=== PATIENT | female | born 1975 | race Two or more races ===

== ENCOUNTER 2019-03-30 21:07 | Observation (INO) | payer BC ==
[2019-03-30 21:27] LABS: #Eosinphils 0.3 thou/uL (0.0-0.7); #Lymphocytes 2.7 thou/uL (1.20-3.40); #Monocytes 0.6 thou/uL (0.11-0.59); %Basophils 0.4 % (0.0-1.0); %Eosinophils 3.1 % (0.0-10.0); %Lymphocytes 28.3 % (21.0-51.0); %Monocytes 6.4 % (0.0-10.0); %Neutrophils 61.8 % (42.0-75.0); Hemoglobin 13.8 g/dL (12.0-16.0); Mean Corpuscular HGB CONC 34.4 g/dL (32.0-36.0); Mean Corpuscular Hemoglobin 28.2 pg (27.0-31.0); Mean Corpuscular Volume 81.9 fL (78.0-98.0); Mean Platelet Volume 6.9 fL (7.4-10.4); Platelet Count 221 thou/uL (130-400); RBC Distribution Width 11.5 % (11.5-14.5); White Blood Cell (WBC) Count 9.7 thou/uL (4.8-10.8)
--- NOTE | 2019-03-30 21:38 | RAD ---
PORTABLE CHEST ONE VIEW: 03/30/19 at 9:21 p.m. HISTORY: Chest pain. FINDINGS: The heart size is normal. The lungs are expanded without focal areas of consolidation, pneumothoraces , or pleural effusions. IMPRESSION: No acute process. POS: [facility]
[2019-03-30 21:49] LABS: ALT (SGPT) 37 U/L (8-55); AST (SGOT) 22 U/L (5-34); Albumin 4.4 g/dL (3.5-5.0); Alkaline Phosphatase 107 U/L (40-110); Anion Gap 12 mmol/L (10-20); BUN (Urea Nitrogen) 14 mg/dL (7.0-18.7); Bilirubin, Total 0.3 mg/dL (0.2-1.2); CK (CPK) 88 U/L (29-168); Calc. Creatinine Clearance 0 mL/min (70-130); Calcium 9.4 mg/dL (7.8-10.44); Carbon Dioxide 28 mmol/L (22-29); Chloride 103 mmol/L (98-107); Estimated GFR-MDRD 78; Globulin 2.8 g/dL (2.4-3.5); Glucose 219 mg/dL (70-105); Potassium 3.6 mmol/L (3.5-5.1); Protein, Total 7.2 g/dL (6.0-8.3); Sodium 139 mmol/L (136-145)
[2019-03-30] MEDS ORDERED: Aspirin Chewable 81 MG TAB ONE (22:26)
[2019-03-30] MEDS ORDERED: Nitroglycerin 2% Ointment 1 INCH/1 GM Packet ONE (22:26)
[2019-03-31] MEDS ORDERED: Ondansetron PF 4 MG/2 ML Vial ONE (00:17)
[2019-03-31] MEDS ORDERED: Morphine 4 MG/ML VIAL ONE (00:17)
[2019-03-31 00:54] LABS: Troponin I 0.027 ng/mL (< 0.028)
[2019-03-31] MEDS ORDERED: Acetaminophen 325 MG TAB PO PRN (00:59)
[2019-03-31] MEDS ORDERED: Ondansetron PF 4 MG/2 ML Vial IVP PRN ×2 (00:59→04:20)
[2019-03-31] MEDS ORDERED: Ondansetron ODT 4 MG TAB SL PRN (00:59)
[2019-03-31 01:04] VITALS: BMI 40.1
[2019-03-31 03:57] LABS: Troponin I 0.016 ng/mL (< 0.028)
[2019-03-31] MEDS ORDERED: Ibuprofen 800 MG TAB PO PRN (04:20)
[2019-03-31] MEDS ORDERED: Ondansetron ODT 4 MG TAB PO PRN (04:20)
[2019-03-31] MEDS ORDERED: Labetalol HCl 100 MG/20 ML VIAL SLOW IVP PRN (04:20)
[2019-03-31] MEDS ORDERED: hydrALAZINE 20 MG/ML VIAL SLOW IVP PRN (04:20)
[2019-03-31] MEDS ORDERED: Acetaminophen 500 MG TAB PO PRN (04:20)
[2019-03-31] MEDS ORDERED: Nitroglycerin 0.4 MG TAB (25 Tab Bottle) PO PRN (04:20)
--- NOTE | 2019-03-31 05:38 | HP ---
PRIMARY CARE PROVIDER: Rosalie Robertson DO with [facility]. CHIEF COMPLAINT: Chest and left arm pain. HISTORY OF PRESENT ILLNESS: This is a 43-year-old female, who presented to [facility] Emergency Department complaining of central chest pressure with radiation to the left arm and shoulder blades while getting fuel for her car. The patient complained of associated jaw pain, headache, nausea and dizziness associated with the chest pain. The patient denied any direct trauma, injury, fever, chills, but does admit to cold symptoms with increased cough over the last week. The patient also admits to increased stress in her life over the last month, as well as anxiety. The patient states she has undergone 2 prior cardiac stress testing in the past, which were interpreted as negative. The patient does admit a family history of early coronary artery disease in her father. The patient states she previously was treated for hypertension approximately 2 years prior to this evaluation; however, was unable to continue her medication due to loss of insurance. The patient denies any recent travel history, family members with similar symptoms, or change to her chronic medication regimen including prednisone daily. In the emergency room, the patient stated the pain was approximately 4/10, relieved with rest. Transdermal nitroglycerin placed in the emergency room. The patient also received morphine sulfate, Zofran, and aspirin 324 mg. PAST MEDICAL HISTORY: 1. Elevated blood pressure with previous treatment for hypertension, none currently. 2. Anxiety. 3. Rheumatoid arthritis, on chronic prednisone therapy. PAST SURGICAL HISTORY: 1. Status post hysterectomy. 2. Status post right total knee arthroplasty. 3. Status post bilateral tubal ligation. CURRENT MEDICATIONS: Prednisone 5 mg p.o. daily. ALLERGIES: IODINE AND INFLIXIMAB. FAMILY HISTORY: Father with early coronary artery disease. SOCIAL HISTORY: , accompanied by her in the hospital. Resides in [place], [place]. No current alcohol, tobacco, or illicit drug use. REVIEW OF SYSTEMS: CONSTITUTIONAL: Negative for weight loss or gain, ability to conduct usual activities. SKIN: Negative for rash, itching. EYES: Negative for double vision, pain. ENT/MOUTH: Negative for nose bleeding, neck stiffness, pain, tenderness. CARDIOVASCULAR: Negative for palpitations, dyspnea on exertion, orthopnea. RESPIRATORY: Negative for shortness of breath, wheezing, cough, hemoptysis, fever or night sweats. GASTROINTESTINAL: Negative for poor appetite, abdominal pain, heartburn, nausea, vomiting, constipation, or diarrhea. GENITOURINARY: Negative for urgency, frequency, dysuria, nocturia. MUSCULOSKELETAL: Negative for pain, swelling. NEUROLOGIC/PSYCHIATRIC: Negative for anxiety, depression. ALLERGY/IMMUNOLOGIC: Negative for skin rash, bleeding tendency. Otherwise negative except as stated per HPI. PHYSICAL EXAMINATION: VITAL SIGNS: On admission, blood pressure 224/129, currently 128/69. Pulse 104, respiratory rate 18, temperature 97.6 degrees Fahrenheit, O2 saturation 99% on room air. GENERAL APPEARANCE: This is a 43-year-old female, alert and oriented x3, pleasant, smiling, in no acute distress. HEENT: Pupils are equal, round, reactive to light and accommodation. Extraocular muscles are intact. No scleral icterus. No conjunctival injection. Nares are patent. OP is clear. Teeth in good repair. NECK: Supple. No cervical adenopathy. No thyromegaly. No carotid bruits. No JVD appreciated. Cervical spine with full active and passive range of motion. No meningeal signs noted. CHEST: Lungs are clear to auscultation bilaterally. CARDIOVASCULAR: S1, S2 without noted murmur, rub, or gallop. ABDOMEN: Obese, soft, nontender, and nondistended. Bowel sounds are positive in all 4 quadrants. There is no hepatosplenomegaly. No abdominal bruits. No rebound or guarding appreciated. EXTREMITIES: Warm and dry with fair turgor. No clubbing, cyanosis, or asymmetric edema appreciated. Pulses palpable distally at the dorsalis pedis, posterior tibial, and popliteal arteries bilaterally. Capillary refill less than 2 seconds. NEUROLOGIC: Cranial nerves 2 through 12 are grossly intact. No focal or lateralizing signs appreciated. PERTINENT LABORATORY AND X-RAY FINDINGS: Basic metabolic profile within normal limits. Glucose 219. LFTs within normal limits. Troponin I negative x3. CBC within normal limits. Portable chest x-ray dated 03/30/2019, showed no acute cardiopulmonary process. EKG dated 03/31/2019, by my interpretation shows sinus mechanism with heart rates in the 60s. Normal R-wave progression noted in the precordial leads. Normal axis. Voltage criteria consistent with left ventricular hypertrophy. ASSESSMENT AND PLAN: 1. Chest pain. The patient will be placed in observation status. We will proceed with exercise Cardiolite stress testing in the a.m. Check fasting lipid profile. Continue telemetry monitoring. 2. Elevated blood pressure. Current blood pressure trend improving. We will continue to monitor blood pressure and consider initiation of low-dose antihypertensive on an ongoing basis after discharge. 3. Rheumatoid arthritis. Continue prednisone 5 mg p.o. daily. 4. Anxiety. General supportive management. Consider anxiolytic for discharge. 5. Prophylaxis. SCDs while in bed. Pepcid 20 mg p.o. b.i.d. Influenza vaccination prior to discharge. CODE STATUS: Full. Surrogate medical decision maker is the patient's spouse. Job ID: [id number]
[2019-03-31] MEDS: Famotidine 20 MG TAB PO SCH ×2 (08:10→20:39)
[2019-03-31] MEDS ORDERED: FLU VACC QS2019-20(6MOS UP)/PF 60 MCG/0.5 ML SYRINGE IM ONE (09:00)
[2019-03-31] MEDS ORDERED: predniSONE 5 MG TAB PO SCH (09:00)
[2019-03-31] MEDS ORDERED: Regadenoson 0.4 MG/5 ML SYRINGE ONE (10:15)
--- NOTE | 2019-03-31 12:17 | PRG ---
DATE OF SERVICE: 03/31/2019 SUBJECTIVE: The patient is seen and examined at the bedside. She had her first part of the stress test done this morning. She complains about the pain in her small joints, both hands. This is from her rheumatoid arthritis. She does not complain about any chest pain. OBJECTIVE: VITAL SIGNS: Blood pressure is 158/75, pulse is 70, respirations 16, temperature is 98.5, and O2 saturation is 96% on room air. HEENT: Head is atraumatic and normocephalic. Eyes are PERRLA. Sclerae are nonicteric. Oral mucosa is moist. NECK: Supple. LUNGS: Clear. HEART: S1 and S2 normal. No S3. No S4. No any murmur. ABDOMEN: Soft and nontender. Bowel sounds are present. No organomegaly. EXTREMITIES: No clubbing, cyanosis, or edema. NEUROLOGIC: She is alert and oriented x4. There are no any motor or sensory deficits. LABORATORY DATA: Troponin I of 0.016. IMPRESSION: 1. Chest pain, resolved, under diagnostic workup. 2. Hypertension, labile. 3. Rheumatoid arthritis. We will increase her prednisone dose to 5 mg twice a day. PLAN: Continue her stress test with the second part to be done tomorrow because of her weight. As I mentioned above, we are going to go up on her prednisone to 5 mg twice a day. We will use ibuprofen p.r.n. and Tylenol for the pain and H2 aarti for PUD prophylaxis. Job ID: [id number]
[2019-03-31] MEDS: predniSONE 5 MG TAB PO SCH (20:38)
[2019-04-01] MEDS: predniSONE 5 MG TAB PO SCH (08:32)
[2019-04-01] MEDS: Famotidine 20 MG TAB PO SCH (08:32)
--- NOTE | 2019-04-01 10:58 | NM ---
NUCLEAR MEDICINE CARDIAC MYOCARDIAL PERFUSION SPECT EJECTION FRACTION STUDY WALL MOTION CINE: DATE: 04/01/2019 HISTORY: 43-year-old female with hypertension and family history of coronary artery disease presents with acut e chest pain. TECHNIQUE: Number of days: 2 Rest study: Technetium 99m-sestamibi (Cardiolite) dose:27.0 mCi Pharmacologic stress: Lexiscan dose: 0.4 mg Stress study: Technetium 99m-sestamibi (Cardiolite) dose:30.0 mCi FINDINGS: CARDIAC (MYOCARDIAL PERFUSION) SPECT There is a small focus of decreased uptake at the anteroseptal region at the apex on the stress study which appears to be at least partially reversible on the rest images. No other perfusion defect identified in the rest of the left ventricular myocardium. EJECTION FRACTION STUDY Left ventricular EF = 67 % WALL MOTION CINE Normal IMPRESSION: Questionable finding of small region of reversible ischemia at the anteroseptal apex.
[2019-04-01 12:21] LABS: Hemoglobin A1c 6.8 % (4.0-6.0)
[2019-04-01 15:14] VITALS: BP 146/72; TEMP 98.7
--- NOTE | 2019-04-01 21:35 | DIS ---
DATE OF ADMISSION: 03/31/2019 DATE OF DISCHARGE: 04/01/2019 DISCHARGE DIAGNOSES: 1. Chest pain, resolved, felt to be most likely noncardiac, although the stress test showed some questionable reversible small ischemia. 2. Hypertension, labile. 3. Rheumatoid arthritis. 4. 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 HOSPITAL COURSE: The patient is a 43-year-old a female, who presented to [facility] Emergency Department complaining of central chest pressure with radiation to the left arm and shoulder blades while getting fuel for her car. The patient complained of associated jaw pain, headache, nausea, and dizziness associated with the chest pain. She denied any direct trauma, injury, fever, chills, but she admitted to have some cold symptoms with increased cough over the last week. Apparently, she underwent two prior cardiac stress testing in the past, which were interpreted as negative. So this problem is somewhat recurrent and she was blaming this on her increased stress in her life over the last month. She admits that she has a family history of early coronary artery disease in her father. She is taking chronically prednisone for her rheumatoid arthritis. The patient received transdermal nitroglycerin in the emergency room and received morphine sulfate, Zofran, and aspirin and got admitted to the hospital. At the time of evaluation, her basic metabolic profile was within normal limits. Glucose was 219. LFTs were within normal limits. Troponin I negative x3. CBC within normal limits and portable chest x-ray showed no acute cardiopulmonary process. EKG showed sinus rhythm without any ischemic abnormalities, although it showed some voltage criteria consistent with left ventricular hypertrophy. The patient got admitted to the hospital and she was placed on protocol for Cardiolite exercise stress testing. She underwent two day protocol, which showed some questionable reversible small ischemia in the anteroseptal region of the apex. Radiologist read this as questionable finding. During this hospitalization, the patient did not have any recurrent symptoms. Her hemoglobin A1c came back elevated at 6.8, so she is going to start metformin 500 mg twice a day. The findings were discussed with her and recommendation was made to do follow up with her primary care physician and set up followup appointment with shanker out to make sure that is all she needs at this point. There was no need for Cardiology in acute care consultation, but she will have to have followup to further address her problem. Clinically, she is doing good. Her blood pressure is 146/72, temperature is 98.7, pulse is 88, respiratory rate is 20, and O2 saturation is 95% on room air. She is discharged home with recommendation to stay on diabetic diet. ACTIVITIES: As tolerated. DISCHARGE MEDICATIONS: 1. Aspirin 81 mg once a day. 2. Lisinopril 2.5 mg once a day. 3. Metformin 500 mg twice a day. 4. Prednisone 5 mg twice a day. The dose was doubled because she had some pains in the small joints on both hands during this hospitalization. 5. Also, she will continue her ibuprofen p.r.n. as needed 800 mg daily. FOLLOWUP: She will follow up with the primary doctor as I mentioned above in 1 week. The time spent on this discharge is less than 30 minutes. Job ID: [id number]
== END 2019-04-01 15:56 | disposition home or self-care (01) ==
LOC: ERS 21:07 → 2SW 03-31 00:54
PROVIDERS: ADMIT Family Medicine; ATTEND Family Medicine
DX: R07.89 Other chest pain (principal); I10 Essential (primary) hypertension; F41.9 Anxiety disorder, unspecified; M06.9 Rheumatoid arthritis, unspecified; E11.9 Type 2 diabetes mellitus without complications; Z79.52 Long term (current) use of systemic steroids; Z88.8 Allergy status to other drugs, medicaments and biological substances; Z91.041 Radiographic dye allergy status
CPT/HCPCS: 36415; 71045; 78452; 80053; 80061; 82550; 83036; 84484; 85025; 93005; 93017; 96374; 96375; A9500; G0378; J2270; J2405; J2785; J7512

== ENCOUNTER 2021-09-13 22:04 | Inpatient (IN) | payer BC ==
[2021-09-13 22:28] LABS: #Eosinphils 0.2 thou/uL (0.0-0.7); #Lymphocytes 2.3 thou/uL (1.20-3.40); #Monocytes 0.5 thou/uL (0.11-0.59); #Neutrophils 5.7 thou/uL (1.40-6.50); %Basophils 0.2 % (0.0-1.0); %Eosinophils 2.8 % (0.0-10.0); %Lymphocytes 26.5 % (21.0-51.0); %Neutrophils 64.5 % (42.0-75.0); Mean Corpuscular Hemoglobin 29.8 pg (27.0-31.0); Mean Corpuscular Volume 85.1 fL (78.0-98.0); Mean Platelet Volume 7.2 fL (7.4-10.4); Platelet Count 221 thou/uL (130-400); RBC Distribution Width 11.5 % (11.5-14.5); Red Blood Cell (RBC) Count 4.35 mill/uL (4.20-5.40); White Blood Cell (WBC) Count 8.8 thou/uL (4.8-10.8)
[2021-09-13] MEDS ORDERED: Nitroglycerin 2% Ointment 1 INCH/1 GM Packet ONE (23:29)
[2021-09-13] MEDS ORDERED: Aspirin 325 MG TAB ONE (23:29)
[2021-09-14] MEDS ORDERED: Ondansetron PF 4 MG/2 ML Vial IVP PRN (00:07)
[2021-09-14] MEDS ORDERED: Senokot S 8.6-50 MG TAB PO PRN (00:07)
[2021-09-14] MEDS ORDERED: Bisacodyl 5 MG TAB PO PRN (00:07)
[2021-09-14] MEDS ORDERED: Enoxaparin Sodium 40 MG/0.4 ML SYRINGE SC SCH ×2 (00:15→21:00)
[2021-09-14] MEDS ORDERED: Pantoprazole 40 MG VIAL IVP SCH ×2 (00:17→09:00)
[2021-09-14] MEDS ORDERED: Morphine 2 MG/ML VIAL SLOW IVP PRN ×2 (00:18)
[2021-09-14] MEDS ORDERED: Nitroglycerin 0.4 MG TAB (25 Tab Bottle) SL PRN (00:36)
[2021-09-14] MEDS ORDERED: Ondansetron ODT 4 MG TAB ONE (01:05)
[2021-09-14] MEDS ORDERED: hydrALAZINE 20 MG/ML VIAL SLOW IVP PRN (01:29)
[2021-09-14] MEDS ORDERED: Communication Order-Pharmacy FS ONE (01:30)
[2021-09-14 01:48] LABS: Troponin I Less than 0.010 ng/mL (< 0.028)
[2021-09-14 02:00] LABS: ALT (SGPT) 49 U/L (8-55); AST (SGOT) 31 U/L (5-34); Alkaline Phosphatase 67 U/L (40-110); Anion Gap 13 mmol/L (10-20); BUN (Urea Nitrogen) 16 mg/dL (7.0-18.7); Bilirubin, Total 0.4 mg/dL (0.2-1.2); Calc. Creatinine Clearance 0 mL/min (70-130); Calcium 9.2 mg/dL (7.8-10.44); Carbon Dioxide 25 mmol/L (22-29); Chloride 106 mmol/L (98-107); Globulin 2.6 g/dL (2.4-3.5); Glucose 125 mg/dL (70-105); Potassium 4.2 mmol/L (3.5-5.1); Protein, Total 6.6 g/dL (6.0-8.3); Sodium 140 mmol/L (136-145)
[2021-09-14 02:13] VITALS: BMI 38.9
[2021-09-14] MEDS ORDERED: Enoxaparin Sodium 120 MG/0.8 ML SYRINGE SC SCH (02:45)
[2021-09-14] MEDS: Sodium Chloride 0.9% 1,000 ML IV SCH ×2 (02:47→15:40)
[2021-09-14] MEDS: predniSONE 50 MG TAB PO SCH ×3 (02:48→14:27)
[2021-09-14 04:58] LABS: #Eosinphils 0.2 thou/uL (0.0-0.7); #Lymphocytes 2.8 thou/uL (1.20-3.40); #Monocytes 0.3 thou/uL (0.11-0.59); #Neutrophils 3.4 thou/uL (1.40-6.50); %Basophils 0.7 % (0.0-1.0); %Eosinophils 3.1 % (0.0-10.0); %Lymphocytes 40.8 % (21.0-51.0); %Monocytes 4.9 % (0.0-10.0); %Neutrophils 50.6 % (42.0-75.0); Hemoglobin 11.7 g/dL (12.0-16.0); Mean Corpuscular HGB CONC 34.9 g/dL (32.0-36.0); Mean Corpuscular Volume 85.8 fL (78.0-98.0); Mean Platelet Volume 7.4 fL (7.4-10.4); Platelet Count 199 thou/uL (130-400); RBC Distribution Width 11.5 % (11.5-14.5); White Blood Cell (WBC) Count 6.8 thou/uL (4.8-10.8)
[2021-09-14 05:17] LABS: ALT (SGPT) 48 U/L (8-55); AST (SGOT) 29 U/L (5-34); Albumin 3.8 g/dL (3.5-5.0); Alkaline Phosphatase 65 U/L (40-110); Anion Gap 12 mmol/L (10-20); BUN (Urea Nitrogen) 15 mg/dL (7.0-18.7); Bilirubin, Total 0.3 mg/dL (0.2-1.2); Calc. Creatinine Clearance 149 mL/min (70-130); Carbon Dioxide 24 mmol/L (22-29); Chloride 104 mmol/L (98-107); Cholesterol 178 mg/dl (< 200 Desired); Globulin 2.6 g/dL (2.4-3.5); Glucose 164 mg/dL (70-105); HDL Cholesterol 44 mg/dL (>60 Neg Risk); LDL Cholesterol, Calculated 66 mg/dL; Potassium 4.1 mmol/L (3.5-5.1); Protein, Total 6.4 g/dL (6.0-8.3); Sodium 136 mmol/L (136-145); Triglycerides 339 mg/dL (Less than 150)
[2021-09-14 05:18] LABS: Troponin I Less than 0.010 ng/mL (< 0.028)
[2021-09-14 06:14] LABS: Hemoglobin A1c 6.6 % (4.0-6.0)
[2021-09-14] MEDS: Aspirin Chewable 81 MG TAB PO SCH (08:33)
[2021-09-14] MEDS: FLUoxetine HCl 20 MG CAP PO SCH (08:33)
[2021-09-14 11:28] LABS: SARS-CoV-2 PCR by NAA Not Detected (NotDetected)
[2021-09-14] MEDS ORDERED: diphenhydrAMINE 50 MG CAP PO SCH (14:30)
[2021-09-14] MEDS ORDERED: diphenhydrAMINE 25 MG CAP PO PRN (15:41)
[2021-09-14] MEDS: Acetaminophen 325 MG TAB PO PRN (16:41)
[2021-09-14] MEDS ORDERED: traMADol HCl 50 MG TAB PO PRN (18:30)
[2021-09-14] MEDS: Atorvastatin Calcium 20 MG TAB PO SCH (20:36)
[2021-09-14] MEDS: Enoxaparin Sodium 120 MG/0.8 ML SYRINGE SC SCH (20:36)
[2021-09-14] MEDS: Lisinopril/Hydrochlorothiazide 20 mg/12.5 mg Tablet PO SCH (20:36)
[2021-09-15] MEDS: Sodium Chloride 0.9% 1,000 ML IV SCH ×3 (01:39→19:58)
[2021-09-15] MEDS: FLUoxetine HCl 20 MG CAP PO SCH (07:58)
[2021-09-15] MEDS: Enoxaparin Sodium 120 MG/0.8 ML SYRINGE SC SCH (07:58)
[2021-09-15] MEDS: Aspirin Chewable 81 MG TAB PO SCH (07:58)
[2021-09-15] MEDS ORDERED: ADENOSINE 60 MG/20 ML VIAL ONE (08:59)
[2021-09-15] MEDS ORDERED: Famotidine 20 MG TAB PO SCH (16:15)
[2021-09-15] MEDS ORDERED: predniSONE 20 MG TAB PO SCH (16:15)
[2021-09-15] MEDS ORDERED: diphenhydrAMINE 25 MG CAP PO SCH (16:15)
[2021-09-15] MEDS ORDERED: ALPRAZolam 1 MG TAB PO PRN (16:23)
[2021-09-15] MEDS: predniSONE 20 MG TAB PO SCH ×2 (19:56→23:39)
[2021-09-15] MEDS: Famotidine 20 MG TAB PO SCH ×2 (19:56→23:40)
[2021-09-15] MEDS: diphenhydrAMINE 25 MG CAP PO SCH ×2 (19:56→23:39)
[2021-09-15] MEDS: Atorvastatin Calcium 20 MG TAB PO SCH (19:57)
[2021-09-15] MEDS: Lisinopril/Hydrochlorothiazide 20 mg/12.5 mg Tablet PO SCH (19:57)
[2021-09-15] MEDS: UPADACITINIB 15 MG PO SCH (21:40)
[2021-09-16] MEDS: Aspirin Chewable 81 MG TAB PO SCH (06:02)
[2021-09-16] MEDS: Famotidine 20 MG TAB PO SCH (06:02)
[2021-09-16] MEDS: diphenhydrAMINE 25 MG CAP PO SCH (06:02)
[2021-09-16] MEDS: predniSONE 20 MG TAB PO SCH (06:03)
[2021-09-16] MEDS: FLUoxetine HCl 20 MG CAP PO SCH (06:03)
[2021-09-16] MEDS ORDERED: Lidocaine 1% (PF) 30 ML VIAL ONE (08:11)
[2021-09-16] MEDS ORDERED: Fentanyl 100 MCG/2 ML VIAL ONE (08:14)
[2021-09-16] MEDS ORDERED: Midazolam HCl 2 mg/2 ml Vial ONE (08:14)
[2021-09-16] MEDS ORDERED: Iopamidol 370 76% 100 ML VIAL ONE (08:46)
[2021-09-16] MEDS ORDERED: Iopamidol 370 76% 50 ML VIAL FS ONE (08:46)
[2021-09-16] MEDS ORDERED: hydrALAZINE 20 MG/ML VIAL ONE (08:53)
[2021-09-16] MEDS ORDERED: Nitroglycerin 2% Ointment 1 INCH/1 GM Packet ONE (08:55)
[2021-09-16] MEDS ORDERED: Heparin 10,000 UNITS/ 10 ML VIAL ONE (08:58)
[2021-09-16] MEDS ORDERED: Bivalirudin 250 MG VIAL ONE (09:02)
[2021-09-16] MEDS ORDERED: Nitroglycerin 100MG/250ML BOT 250 ML ONE (09:04)
[2021-09-16] MEDS ORDERED: Clopidogrel Bisulfate 300 MG TAB ONE ×2 (09:11→09:12)
[2021-09-16] MEDS ORDERED: Sodium Chloride 0.9% 1,000 ML IV SCH (09:43)
[2021-09-16] MEDS ORDERED: Morphine 2 MG/ML VIAL ONE ×2 (11:02→13:24)
[2021-09-16] MEDS ORDERED: Ondansetron PF 4 MG/2 ML Vial ONE (11:02)
[2021-09-16] MEDS ORDERED: Ondansetron PF 4 MG/2 ML Vial IVP SCH (13:45)
[2021-09-16] MEDS: Insulin Glargine 30 UNITS/0.3 ML VIAL SC SCH (17:39)
[2021-09-16] MEDS: Sodium Chloride 0.9% 1,000 ML IV SCH (17:40)
[2021-09-16] MEDS: Acetaminophen 325 MG TAB PO PRN (17:40)
[2021-09-16] MEDS: Icosapent Ethyl 1 GM CAPSULE PO SCH (19:49)
[2021-09-16] MEDS: Lisinopril/Hydrochlorothiazide 20 mg/12.5 mg Tablet PO SCH (19:50)
[2021-09-16] MEDS: UPADACITINIB 15 MG PO SCH (19:50)
[2021-09-16] MEDS ORDERED: Atorvastatin Calcium 40 MG TAB PO SCH (21:00)
[2021-09-16] MEDS ORDERED: Lidocaine 2% Viscous Solution 10 ML, Aluminum & Magnesium Hydroxide 30 ML SSW SCH (22:15)
[2021-09-17 04:43] LABS: #Lymphocytes 3.7 thou/uL (1.20-3.40); #Monocytes 0.7 thou/uL (0.11-0.59); #Neutrophils 5.3 thou/uL (1.40-6.50); %Basophils 0.2 % (0.0-1.0); %Eosinophils 0.4 % (0.0-10.0); %Lymphocytes 38.2 % (21.0-51.0); %Monocytes 6.8 % (0.0-10.0); %Neutrophils 54.3 % (42.0-75.0); Hemoglobin 11.5 g/dL (12.0-16.0); Mean Corpuscular HGB CONC 34.3 g/dL (32.0-36.0); Mean Corpuscular Hemoglobin 29.7 pg (27.0-31.0); Mean Corpuscular Volume 86.4 fL (78.0-98.0); Mean Platelet Volume 7.3 fL (7.4-10.4); Platelet Count 211 thou/uL (130-400); RBC Distribution Width 11.6 % (11.5-14.5); Red Blood Cell (RBC) Count 3.87 mill/uL (4.20-5.40); White Blood Cell (WBC) Count 9.7 thou/uL (4.8-10.8)
[2021-09-17 05:06] LABS: ALT (SGPT) 60 U/L (8-55); AST (SGOT) 29 U/L (5-34); Albumin 3.8 g/dL (3.5-5.0); Alkaline Phosphatase 55 U/L (40-110); Anion Gap 12 mmol/L (10-20); BUN (Urea Nitrogen) 21 mg/dL (7.0-18.7); Bilirubin, Total 0.3 mg/dL (0.2-1.2); Calc. Creatinine Clearance 144 mL/min (70-130); Calcium 8.5 mg/dL (7.8-10.44); Carbon Dioxide 26 mmol/L (22-29); Chloride 106 mmol/L (98-107); Globulin 2.5 g/dL (2.4-3.5); Glucose 169 mg/dL (70-105); Magnesium 2.2 mg/dL (1.6-2.6); Potassium 3.5 mmol/L (3.5-5.1); Protein, Total 6.3 g/dL (6.0-8.3); Sodium 140 mmol/L (136-145)
[2021-09-17] MEDS: FLUoxetine HCl 20 MG CAP PO SCH (08:28)
[2021-09-17] MEDS: Insulin Glargine 30 UNITS/0.3 ML VIAL SC SCH (08:29)
[2021-09-17] MEDS: Icosapent Ethyl 1 GM CAPSULE PO SCH (08:29)
[2021-09-17] MEDS: Aspirin Chewable 81 MG TAB PO SCH (08:29)
[2021-09-17] MEDS ORDERED: Clopidogrel Bisulfate 75 MG TAB PO SCH (09:00)
[2021-09-17 09:11] VITALS: TEMP 97.9
[2021-09-17 16:02] VITALS: BP 144/78
== END 2021-09-17 12:05 | disposition home or self-care (01) | DRG 247 ==
LOC: ERS 22:04 → 2SW 23:58 → OBSVTOIN 09-15 12:10
PROVIDERS: ADMIT Internal Medicine; ATTEND Internal Medicine
PROC: 027035Z Dilation of Coronary Artery, One Artery with Two Drug-eluting Intraluminal Devices, Percutaneous Approach (ICD-10-PCS; principal; 2021-09-16)
PROC: 4A023N7 Measurement of Cardiac Sampling and Pressure, Left Heart, Percutaneous Approach (ICD-10-PCS; 2021-09-16)
PROC: B2111ZZ Fluoroscopy of Multiple Coronary Arteries using Low Osmolar Contrast (ICD-10-PCS; 2021-09-16)
PROC: B2151ZZ Fluoroscopy of Left Heart using Low Osmolar Contrast (ICD-10-PCS; 2021-09-16)
DX: I25.110 Atherosclerotic heart disease of native coronary artery with unstable angina pectoris (principal); Z20.822 Contact with and (suspected) exposure to COVID-19; M06.9 Rheumatoid arthritis, unspecified; I10 Essential (primary) hypertension; F32.A Depression, unspecified; Z96.651 Presence of right artificial knee joint; E78.5 Hyperlipidemia, unspecified; E66.01 Morbid (severe) obesity due to excess calories; E09.65 Drug or chemical induced diabetes mellitus with hyperglycemia; T38.0X5A Adverse effect of glucocorticoids and synthetic analogues, initial encounter; Z68.38 Body mass index [BMI] 38.0-38.9, adult; Z88.8 Allergy status to other drugs, medicaments and biological substances; Z91.041 Radiographic dye allergy status; Z79.899 Other long term (current) drug therapy; Z79.82 Long term (current) use of aspirin; Z90.710 Acquired absence of both cervix and uterus; Z83.3 Family history of diabetes mellitus; Z82.49 Family history of ischemic heart disease and other diseases of the circulatory system; Z98.51 Tubal ligation status
CPT/HCPCS: 36415; 36416; 71045; 71275; 78452; 80053; 80061; 82565; 83036; 83690; 83735; 84484; 85025; 85347; 85379; 92928; 93005; 93010; 93017; 93458; 93798; 94760; 96372; 96374; 96375; 96376; 99152; 99153; A9500; C1874; C9113; C9600; G0378; J0153; J0360; J0583; J1644; J1650; J1815; J2001; J2250; J2270; J2405; J3010; J7050; J7512; Q0162; Q9967; U0003; U0005

== ENCOUNTER 2022-05-24 23:18 | Inpatient (IN) | payer BC ==
[2022-05-24] MEDS ORDERED: Aspirin Chewable 81 MG TAB ONE (23:49)
[2022-05-24 23:50] LABS: #Eosinphils 0.2 thou/uL (0.0-0.7); #Lymphocytes 2.2 thou/uL (1.20-3.40); #Monocytes 0.6 thou/uL (0.11-0.59); #Neutrophils 4.5 thou/uL (1.40-6.50); %Eosinophils 3.2 % (0.0-10.0); %Lymphocytes 29.5 % (21.0-51.0); %Monocytes 7.5 % (0.0-10.0); %Neutrophils 59.8 % (42.0-75.0); Mean Corpuscular HGB CONC 35.1 g/dL (32.0-36.0); Mean Corpuscular Hemoglobin 29.1 pg (27.0-31.0); Mean Corpuscular Volume 82.7 fl (78.0-98.0); Mean Platelet Volume 7.4 fL (7.4-10.4); Platelet Count 233 10x3/uL (130-400); RBC Distribution Width 11.3 % (11.5-14.5); Red Blood Cell (RBC) Count 4.47 mill/uL (4.20-5.40); White Blood Cell (WBC) Count 7.5 10x3/uL (4.8-10.8)
[2022-05-25 00:07] LABS: INR-International Normal Ratio 0.8; PTT 28.5 sec (22.9-36.1); Prothrombin Time 11.8 sec (12.0-14.7)
[2022-05-25] MEDS ORDERED: Nitroglycerin 0.4 MG TAB 1 EACH ONE (00:12)
[2022-05-25 00:13] LABS: ALT (SGPT) 52 U/L (8-55); AST (SGOT) 27 U/L (5-34); Albumin 4.3 g/dL (3.5-5.0); Alkaline Phosphatase 84 U/L (40-110); Anion Gap 12 mmol/L (10-20); BUN (Urea Nitrogen) 13 mg/dL (7.0-18.7); Bilirubin, Total 0.4 mg/dL (0.2-1.2); Calc. Creatinine Clearance 0 mL/min (70-130); Calcium 9.5 mg/dL (7.8-10.44); Carbon Dioxide 24 mmol/L (22-29); Chloride 105 mmol/L (98-107); Estimated GFR 99; Globulin 3.1 g/dL (2.4-3.5); Glucose 242 mg/dL (70-105); Potassium 3.7 mmol/L (3.5-5.1); Protein, Total 7.4 g/dL (6.0-8.3); Sodium 137 mmol/L (136-145)
[2022-05-25] MEDS ORDERED: Nitroglycerin 2% Ointment 1 INCH/1 GM Packet ONE (00:31)
[2022-05-25 00:43] LABS: BHCG - Serum Negative (NEGATIVE); Pregs Control Background? CLEAR/WHITE (CLR/WHITE); Pregs Control Bar Appear? YES (CONTROL BAR)
[2022-05-25] MEDS ORDERED: Acetaminophen 500 MG TAB ONE (02:17)
[2022-05-25 03:21] LABS: Troponin I Less than 0.010 ng/mL (< 0.028)
[2022-05-25 04:42] LABS: Bacteria/HPF 1+ HPF (None Seen); Bilirubin Negative (Negative); Blood, Urine Trace (Negative); Clarity Clear (Clear); Glucose, Urine (Dipstick) 100 mg/dL (Negative); Ketone, Urine Negative (Negative); Leukocyte Negative Leu/uL (Negative); Nitrite Negative (Negative); Protein, Urine (Dipstick) Negative (Neg-Trace); RBC/HPF 0-3 HPF (0-3); Specific Gravity, Urine 1.026 (1.002-1.036); Urobilinogen Normal mg/dL (Less than 2); WBC/HPF 0-3 HPF (0-3); pH, Urine 5.5 (5.0-9.0)
[2022-05-25] MEDS ORDERED: Senokot S 8.6-50 MG TAB PO PRN (04:48)
[2022-05-25] MEDS ORDERED: Ondansetron ODT 4 MG TAB PO PRN (04:48)
[2022-05-25 04:58] LABS: SARS-CoV-2 NAA Rapid Test Not Detected (NotDetected)
[2022-05-25 06:42] LABS: Troponin I Less than 0.010 ng/mL (< 0.028)
[2022-05-25] MEDS ORDERED: Aspirin Chewable 81 MG TAB ONE (08:37)
[2022-05-25] MEDS: Aspirin 81 mg Enteric Coated Tablet PO SCH (08:38)
[2022-05-25] MEDS: Icosapent Ethyl 1 GM CAPSULE PO SCH ×2 (08:38→21:33)
[2022-05-25] MEDS ORDERED: Dextrose 50% Abboject 50 ML SYRINGE SLOW IVP PRN (08:41)
[2022-05-25] MEDS ORDERED: Dextrose 5% in Water 1,000 ML IV PRN (08:41)
[2022-05-25] MEDS ORDERED: Famotidine 20 MG TAB PO SCH (09:00)
[2022-05-25] MEDS ORDERED: traMADol HCl 50 MG TAB ONE (12:43)
[2022-05-25] MEDS ORDERED: traMADol HCl 50 MG TAB PO SCH (12:45)
[2022-05-25 18:54] VITALS: BMI 39.0
[2022-05-25] MEDS ORDERED: traMADol HCl 50 MG TAB PO PRN (20:04)
[2022-05-25] MEDS ORDERED: Upadacitinib [Rinvoq] 15 MG Tab.Er.24h PO SCH (21:00)
[2022-05-25] MEDS: Lisinopril/Hydrochlorothiazide 20 mg/12.5 mg Tablet PO SCH (21:34)
[2022-05-25] MEDS: FLUoxetine HCl 20 MG CAP PO SCH (21:34)
[2022-05-25] MEDS: Atorvastatin Calcium 40 MG TAB PO SCH (21:34)
[2022-05-25] MEDS: Melatonin 3 MG TAB PO PRN (21:36)
[2022-05-26] MEDS: Icosapent Ethyl 1 GM CAPSULE PO SCH ×2 (08:01→20:29)
[2022-05-26] MEDS: Aspirin 81 mg Enteric Coated Tablet PO SCH (08:01)
[2022-05-26] MEDS ORDERED: FLU VACC QS2022-23(6MOS UP)/PF 60 MCG/0.5 ML SYRINGE IM ONE (09:00)
[2022-05-26] MEDS ORDERED: Dextrose 5% in Water 1,000 ML IV PRN (12:30)
[2022-05-26] MEDS ORDERED: HumaLOG 300 UNITS/3 ML VIAL SC PRN (12:30)
[2022-05-26] MEDS ORDERED: Dextrose 50% Abboject 50 ML SYRINGE IVP PRN (12:30)
[2022-05-26] MEDS ORDERED: Regadenoson 0.4 MG/5 ML SYRINGE ONE (13:29)
[2022-05-26] MEDS: Atorvastatin Calcium 40 MG TAB PO SCH (20:29)
[2022-05-26] MEDS: Lisinopril/Hydrochlorothiazide 20 mg/12.5 mg Tablet PO SCH (20:29)
[2022-05-26] MEDS: FLUoxetine HCl 20 MG CAP PO SCH (20:29)
[2022-05-26] MEDS: Melatonin 3 MG TAB PO PRN (22:12)
[2022-05-27 06:00] LABS: Hemoglobin 13.2 g/dL (12.0-16.0); Mean Corpuscular HGB CONC 36.1 g/dL (32.0-36.0); Mean Corpuscular Hemoglobin 29.9 pg (27.0-31.0); Mean Platelet Volume 7.7 fL (7.4-10.4); Platelet Count 214 10x3/uL (130-400); RBC Distribution Width 11.4 % (11.5-14.5); Red Blood Cell (RBC) Count 4.42 mill/uL (4.20-5.40); White Blood Cell (WBC) Count 6.4 10x3/uL (4.8-10.8)
[2022-05-27 06:03] LABS: Hemoglobin A1c 8.3 % (4.0-6.0)
[2022-05-27 06:21] LABS: ALT (SGPT) 44 U/L (8-55); AST (SGOT) 24 U/L (5-34); Albumin 4.2 g/dL (3.5-5.0); Alkaline Phosphatase 73 U/L (40-110); Anion Gap 10 mmol/L (10-20); BUN (Urea Nitrogen) 13 mg/dL (7.0-18.7); Bilirubin, Total 0.6 mg/dL (0.2-1.2); Calc. Creatinine Clearance 139 mL/min (70-130); Calcium 9.7 mg/dL (7.8-10.44); Carbon Dioxide 31 mmol/L (22-29); Chloride 100 mmol/L (98-107); Estimated GFR 86; Globulin 3.1 g/dL (2.4-3.5); Glucose 225 mg/dL (70-105); Potassium 4.1 mmol/L (3.5-5.1); Protein, Total 7.3 g/dL (6.0-8.3); Sodium 137 mmol/L (136-145)
[2022-05-27] MEDS: Aspirin 81 mg Enteric Coated Tablet PO SCH (10:20)
[2022-05-27] MEDS: Icosapent Ethyl 1 GM CAPSULE PO SCH ×2 (10:20→21:48)
[2022-05-27] MEDS: Acetaminophen 325 MG TAB PO PRN (10:28)
[2022-05-27] MEDS ORDERED: Clopidogrel Bisulfate 75 MG TAB PO SCH (14:00)
[2022-05-27] MEDS ORDERED: NIFEdipine XL 60 MG TAB PO SCH (14:15)
[2022-05-27] MEDS ORDERED: Sodium Chloride 0.9% 500 ML IVPB SCH ×2 (19:45)
[2022-05-27] MEDS: Lisinopril/Hydrochlorothiazide 20 mg/12.5 mg Tablet PO SCH (21:46)
[2022-05-27] MEDS: Atorvastatin Calcium 40 MG TAB PO SCH (21:47)
[2022-05-27] MEDS: FLUoxetine HCl 20 MG CAP PO SCH (21:47)
[2022-05-28] MEDS: Acetaminophen 325 MG TAB PO PRN (01:36)
[2022-05-28] MEDS: Aspirin 81 mg Enteric Coated Tablet PO SCH (08:06)
[2022-05-28] MEDS: Icosapent Ethyl 1 GM CAPSULE PO SCH (08:07)
[2022-05-28 08:26] VITALS: BP 139/78; TEMP 97.6
[2022-05-28] MEDS ORDERED: NIFEdipine XL 60 MG TAB PO SCH (09:00)
[2022-05-28] MEDS ORDERED: Clopidogrel Bisulfate 75 MG TAB PO SCH (09:00)
[2022-05-28] MEDS ORDERED: NIFEdipine XL 30 MG TAB PO SCH (09:00)
== END 2022-05-28 11:15 | disposition home or self-care (01) | DRG 313 ==
LOC: ERS 23:18 → INTOOBSV 05-25 02:01 → ERHOLD 05-25 02:01 → 2SW 05-25 02:31 → OBSVTOIN 05-27 13:02
PROVIDERS: ADMIT Student in an Organized Health Care Education/Training Program; ATTEND Internal Medicine
DX: R07.89 Other chest pain (principal); I25.10 Atherosclerotic heart disease of native coronary artery without angina pectoris; I10 Essential (primary) hypertension; E78.5 Hyperlipidemia, unspecified; E66.01 Morbid (severe) obesity due to excess calories; F41.9 Anxiety disorder, unspecified; M06.9 Rheumatoid arthritis, unspecified; Z79.899 Other long term (current) drug therapy; Z68.39 Body mass index [BMI] 39.0-39.9, adult
CPT/HCPCS: 36415; 36416; 71045; 78452; 80053; 81003; 81015; 83036; 83880; 84484; 84703; 85025; 85027; 85610; 85730; 93017; A9500; J1815; J2785; J7030; U0002